=== PATIENT | male | born 1965 | race Caucasian/White ===

== ENCOUNTER 2018-11-24 07:22 | Day surgery (SDC) | payer BC, OTHER ==
[2018-11-23 10:24] VITALS: BMI 31.8
[2018-11-24] MEDS ORDERED: LIDOCAINE VISCOUS 2% ORAL/TOP 20 ML UNIT-DOSE CUP ONE (08:59)
[2018-11-24] MEDS ORDERED: MIDAZOLAM HCL 2 MG/2 ML SINGLE DOSE VIAL ONE (09:00)
[2018-11-24] MEDS ORDERED: LIDOCAINE VISCOUS 2% ORAL/TOP 100 ML BOTTLE MM ONE (09:10)
[2018-11-24] MEDS ORDERED: TETRACAINE/BENZOCAINE/BUTAMBEN 20 GM SPR TP ONE (09:13)
[2018-11-24 09:25] VITALS: TEMP 97.5
[2018-11-24 10:06] VITALS: BP 139/83; PULSE 85
--- NOTE | 2018-11-27 17:45 | PATH ---
Surgical Pathology Report Patient Name: CHUCK HADLEY [facility]. Rec. #: [id number] /Age/Gender: 1965 (Age: 53) / M Account: [id number] Location: U-ENDOSCOPY Taken: 11/24/2018 Received: 11/24/2018 Reported: 11/27/2018 Physicians: Yadira Mccallum M.D. Specimen(s) Received A: BX 2ND PORTION DUODENUM B: BX ANTRUM Clinical History Abdominal pain, acid reflux Postoperative diagnosis: Hiatal hernia, gastritis, duodenitis Final Diagnosis A. DUODENUM, SECOND PORTION, BIOPSY: DUODENAL MUCOSA WITH MILD CHRONIC DUODENITIS AND PRESERVED VILLOUS ARCHITECTURE. B. STOMACH, ANTRUM, BIOPSY: GASTRIC ANTRAL MUCOSA WITH MILD CHRONIC GASTRITIS. IMMUNOHISTOCHEMICAL STAIN FOR H. PYLORI IS NEGATIVE. Electronically Signed Meka Villalpando M.D. Gross Description A. Received in formalin, labeled "second portion of duodenum biopsy" is a watson, irregular portion of soft tissue measuring 0.4 cm. in greatest dimension. The specimen is submitted in toto in one cassette. B. Received in formalin, labeled "biopsy antrum" are 2 watson, irregular portions of soft tissue measuring 0.2 and 0.5 cm. in greatest dimension. The specimens are submitted in toto in one cassette. 11/24/201811/24/2018
== END 2018-11-24 10:07 | disposition home or self-care (01) ==
LOC: JASU-ENDO 07:22
PROVIDERS: ATTEND Internal Medicine Gastroenterology
PROC: 0DB68ZX Excision of Stomach, Via Natural or Artificial Opening Endoscopic, Diagnostic (ICD-10-PCS; 2018-11-24)
PROC: 0DB98ZX Excision of Duodenum, Via Natural or Artificial Opening Endoscopic, Diagnostic (ICD-10-PCS; principal; 2018-11-24 08:45)
DX: K21.9 Gastro-esophageal reflux disease without esophagitis (principal); K44.9 Diaphragmatic hernia without obstruction or gangrene; K29.70 Gastritis, unspecified, without bleeding; K29.80 Duodenitis without bleeding
CPT/HCPCS: 88305-TC; 88342-TC

== ENCOUNTER 2019-01-05 09:09 | Day surgery (SDC) | payer OTHER ==
[2019-01-04 10:13] VITALS: BMI 31.0
[2019-01-05 12:02] VITALS: BP 125/68; PULSE 67; TEMP 98
--- NOTE | 2019-01-08 14:26 | PATH ---
Surgical Pathology Report Patient Name: CHUCK HADLEY [facility]. Rec. #: [id number] /Age/Gender: 1965 (Age: 53) / M Account: [id number] Location: [facility]-ENDOSCOPY Taken: 01/05/2019 Received: 01/05/2019 Reported: 01/08/2019 Physicians: Yadira Mccallum M.D. Specimen(s) Received RECTAL POLYPS Clinical History Screening Postoperative diagnosis: Colon polyps Final Diagnosis RECTAL POLYPS, POLYPECTOMY: HYPERPLASTIC POLYP, MULTIPLE FRAGMENTS. Electronically Signed Jono Brand M.D. Gross Description Received in formalin, labeled "biopsy rectal polyps" are 5 watson, irregular portions of soft tissue ranging from 0.1-0.5 cm. in greatest dimension. The specimens are submitted in toto in one cassette. 01/05/201901/05/2019
== END 2019-01-05 12:02 | disposition home or self-care (01) ==
LOC: JASU-ENDO 09:09
PROVIDERS: ATTEND Internal Medicine Gastroenterology
PROC: 0DBP8ZX Excision of Rectum, Via Natural or Artificial Opening Endoscopic, Diagnostic (ICD-10-PCS; principal; 2019-01-05 10:30)
DX: Z12.11 Encounter for screening for malignant neoplasm of colon (principal); K64.8 Other hemorrhoids; K62.1 Rectal polyp
CPT/HCPCS: 88305-TC